=== PATIENT | male | born 1950 | race Caucasian/White ===

== ENCOUNTER → 2016-12-07 | Outpatient (CLI) | payer OTHER | END | disposition home or self-care (01) | LOC: NUC 11:00 | DX: M15.0 Primary generalized (osteo)arthritis (principal); R93.7 Abnormal findings on diagnostic imaging of other parts of musculoskeletal system; R97.20 Elevated prostate specific antigen [PSA] | CPT/HCPCS: 78306; A9503 ==

== ENCOUNTER → 2017-01-12 | Outpatient (CLI) | payer MEDICARE, OTHER ==
[~2017-01-12] MED LIST: ASPIRIN81 M2 PO; BENAZEPRIL HCL40 MG PO; KLONOPIN1 MG PO; LIBRAX, CLI1 CAPSULE PO; NORVASC5 MG PO; PRAVACHOL20 MG PO; PREVACID30 MG PO; VITAMIN D32000 UNI1 PO; ZANTAC300 MG PO
== END | disposition home or self-care (01) ==
LOC: CDC 09:53
DX: C61 Malignant neoplasm of prostate (principal); R94.31 Abnormal electrocardiogram [ECG] [EKG]
CPT/HCPCS: 93000

== ENCOUNTER 2017-01-18 06:44 | Inpatient (IN) | payer OTHER ==
[~2017-01-18] VITALS: Ht 167.6 cm; Wt 90.8 kg
[2017-01-18 07:11] VITALS: BP 144/89
[2017-01-18 14:18] VITALS: BP 113/65
[2017-01-18 15:00] LABS: HEMATOCRIT 32.2 % (38.0-50.0); MCV 89.9 FL (86-99)
[2017-01-19 00:46] VITALS: BP 121/65
[2017-01-19 04:29] VITALS: BP 125/59
[2017-01-19 06:54] VITALS: BP 118/69
[2017-01-19 11:07] LABS: HEMATOCRIT 31.3 % (38.0-50.0); MCH 29.6 PG (29.0-34.0); MCHC 33.2 G/DL (30.0-36.0); MCV 89.2 FL (86-99); MEAN PLAT.VOLUME 9.8 uM^3 (9.0-12.4); PLATELET COUNT 150 K/uL (156-360); RBC DIS.WIDTH-CV 12.6 % (11.8-14.6); WHITE BLOOD COUNT 8.1 K/uL (4.1-10.2)
[2017-01-19 11:13] LABS: RED BLOOD COUNT 3.51 M/uL (4.00-5.50)
[2017-01-19 15:05] VITALS: BP 121/71
[2017-01-19 19:15] VITALS: BP 128/58
[2017-01-19 23:15] VITALS: BP 144/89
[2017-01-20 03:07] VITALS: BP 124/67
[2017-01-20 07:55] VITALS: BP 135/75
[2017-01-20] MEDS ORDERED: NORCO 5/3251 TABLET PO (13:16)
[2017-01-20] MEDS ORDERED: SEPTRA DS TABL1 EACH PO (13:16)
== END 2017-01-20 13:39 | disposition home or self-care (01) | DRG 708 ==
LOC: 2SOUTH → 5EAST 06:44 → 2SOUTH 07:09 → 5EAST 14:01
PROVIDERS: Urology
PROC: 07TC0ZZ Resection of Pelvis Lymphatic, Open Approach (ICD-10-PCS; principal; 2017-01-18)
PROC: 0VT00ZZ Resection of Prostate, Open Approach (ICD-10-PCS; principal; 2017-01-18)
DX: C61 Malignant neoplasm of prostate (principal); Z88.1 Allergy status to other antibiotic agents; Z88.8 Allergy status to other drugs, medicaments and biological substances; Z87.891 Personal history of nicotine dependence
CPT/HCPCS: 85014; 85018; 85027; 88305; 88309; J0131; J0330; J1100; J1170; J1335; J2250; J2405; J2710; J3010; J7050; J7120

== ENCOUNTER → 2017-04-03 | Outpatient (CLI) | payer OTHER ==
[~2017-04-03] MED LIST changes: +NORCO 5/3251 TABLET PO; +SEPTRA DS TABL1 EACH PO
== END | disposition home or self-care (01) ==
LOC: NUC 10:59
DX: C79.51 Secondary malignant neoplasm of bone (principal); K76.89 Other specified diseases of liver; N28.1 Cyst of kidney, acquired; R91.1 Solitary pulmonary nodule; R93.7 Abnormal findings on diagnostic imaging of other parts of musculoskeletal system; Z90.79 Acquired absence of other genital organ(s)
CPT/HCPCS: 71260; 74177; 78306; A9503